=== PATIENT | male | born 1940 | race Two or more races ===

== ENCOUNTER 2021-01-24 19:08 | Inpatient (IN) | payer OTHER ==
[~2021-01-24] VITALS: Ht 165.1 cm; Wt 83.9 kg
[2021-01-24] MEDS ORDERED: NA PHOS,M-B/NA PHOS,DI-BA 1 EA ENEMA RC ONE ×2 (20:00→20:02)
[2021-01-24] MEDS ORDERED: BISACODYL SUPP (10 MG) 10 MG/SUPP.RECT SUPP.RECT RC ONE ×2 (20:00→20:02)
[2021-01-24 20:18] LABS: HEMATOCRIT 44 % (39-51); HEMOGLOBIN 14.5 g/dL (13.5-17.5); LYMPHOCYTES # (AUTO) 0.6 K/uL (0.8-4.8); LYMPHOCYTES % (AUTO) 3.7 % (20.0-44.0); MEAN CORPUSCULAR HGB CONC 33 g/dl (31.0-36.0); MEAN CORPUSCULAR VOLUME 99 fL (80-96); MONOCYTES # (AUTO) 0.2 K/uL (0.1-1.30); MONOCYTES % (AUTO) 1.5 % (2.0-12.0); NEUTROPHILS % (AUTO) 92.8 % (43.0-81.0); PLATELET COUNT (AUTO) 207 K/uL (150-450); RED BLOOD CELL COUNT(AUTO) 4.47 MIL/uL (4.5-6.0)
[2021-01-24 20:36] LABS: ALBUMIN 3.4 g/dL (3.4-5.0); BILIRUBIN,DIRECT 0.2 mg/dL (0.0-0.2); BILIRUBIN,TOTAL 1.3 mg/dL (0.2-1.0); CALCIUM, SERUM 8.1 mg/dL (8.5-10.1); CREATININE 1.3 mg/dL (0.6-1.3); POTASSIUM 3.6 mmol/L (3.5-5.1); TOTAL PROTEIN, SERUM 6.9 g/dL (6.4-8.2)
[2021-01-24] MEDS ORDERED: IOHEXOL-300 100 ML VIAL IV ONE (20:48)
[2021-01-24] MEDS ORDERED: IV NS 0.9% 250 ML IV ONE (20:49)
[2021-01-24] MEDS ORDERED: KETOROLAC TROMETHAMINE INJ 30 MG/ML VIAL IV ONE (21:00)
[2021-01-24] MEDS ORDERED: KETOROLAC TROMETHAMINE 15 MG/ML VIAL ONE (21:13)
--- NOTE | 2021-01-24 21:54 | NUR ---
COVID SWAB COLLECTED AND SENT TO LAB
[2021-01-24] MEDS ORDERED: CIPROFLOXACIN IV RTU 200 ML IV ONE (22:16)
[2021-01-24] MEDS: CIPROFLOXACIN IV RTU 400 MG in PREMIX 1 EA IV SCH (22:21)
--- NOTE | 2021-01-24 22:30 | NUR ---
PATIENT SECOND BM ATTEMPT
[2021-01-24 22:49] LABS: BILIRUBIN,URINE NEGATIVE (NEGATIVE); COLOR,URINE RED (YELLOW); LEUKOCYTE ESTERASE ,URINE MODERATE (NEGATIVE); NITRITE, URINE NEGATIVE (NEGATIVE); PH,URINE 6.5 (5.0-8.0); PROTEIN,URINE 30 mg/dl (NEGATIVE); UGLUCOSE NEGATIVE (NEGATIVE); UROBILINOGEN,URINE 0.2 EU/dL (0.2)
[2021-01-24 22:59] LABS: RBC,URINE TOO NUMEROUS TO COUN /HPF (0-2); WBC,URINE 51-80 /HPF (0-3)
[2021-01-25] MEDS ORDERED: Z GUARD REMEDY 2 OZ OINT TP PRN (01:00)
[2021-01-25] MEDS ORDERED: ONDANSETRON HCL/PF 4 MG/2 ML VIAL IVP PRN (01:00)
[2021-01-25] MEDS ORDERED: ZOLPIDEM TARTRATE 5 MG TABLET PO PRN (01:00)
--- NOTE | 2021-01-25 01:00 | NUR ---
MRSA SWAB COLLECTED AND SENT TO LAB. PATIENT'S BELONGINGS LIST DONE.
--- NOTE | 2021-01-25 01:02 | NUR ---
ms 311-2
--- NOTE | 2021-01-25 01:12 | NUR ---
REPORT GIVEN TO LIZZETH VAUGHN
[2021-01-25] MEDS ORDERED: SENN-175 PO (01:17)
[2021-01-25] MEDS ORDERED: AMLO2.5T4 PO (01:19)
[2021-01-25] MEDS ORDERED: TAMS-12 PO (01:19)
[2021-01-25] MEDS ORDERED: OMEP20CA15 PO (01:19)
--- NOTE | 2021-01-25 01:35 | NUR ---
PATIENT TRANSFERRED VSS, NO ACUTE DISTRESS NOTED.
--- NOTE | 2021-01-25 01:40 | NUR ---
COMPUTER SUPPORT TECHNICIAN NOTE RECEIVED PT FROM [facility] TO [id number] VIA BALJIT ACCOMPANIED BY VALVE SETTER. DX: ACUTE CYSTITIS. PT A/OX4, ABLE TO VERBALIZE NEEDS. SPEAKS BULGARIAN AND SOME HEBREW. HE DENIES PAIN AND DENIES SOB AT THIS TIME. RESPIRATIONS EVEN/UNLABORED. ON ROOM AIR AND JAQUI WELL. NOTED IV SITE L-FA #20G INTACT/PATENT/FLUSHES WELL. NOTED FC IN PLACE, DRAINING RED, CLOUDY URINE. PT IS AMBULATORY. PROVIDED ORIENTATION TO ROOM AND STAFF, AND SAFETY TEACHINGS REINFORCED. PT VERBALIZED UNDERSTANDING. SAFETY MEASURES IN PLACE, BED IN LOWEST LOCKED POSITION, S/R UPX2, CALL LIGHT WITHIN REACH. WILL CONT TO MONITOR.
[2021-01-25] MEDS ORDERED: CEFTRIAXONE 1 G VIAL ONE (01:47)
[2021-01-25] MEDS: ACETAMINOPHEN 325 MG TABLET PO PRN ×2 (01:57→17:27)
[2021-01-25] MEDS: MAG HYDROX/AL HYDROX/SIMETH 30 ML UDC PO PRN (01:57)
[2021-01-25] MEDS: CEFTRIAXONE 1 G in IV D5W 50 ML IV SCH ×2 (01:58→22:12)
--- NOTE | 2021-01-25 02:00 | NUR ---
RN NOTE PT C/O UPSET STOMACH/INDIGESTION AND MILD HEADACHE. PT IS CURRENTLY NPO. REPORTED TO CAITLIN GERARDO, WITH ORDER FOR "NPO EXCEPT MEDS." ORDER NOTED/CARRIED OUT. GIVEN PT MAALOX AND TYLENOL ORDERED.
[2021-01-25 02:10] VITALS: BP 116/62
[2021-01-25] MEDS: IV NS 0.9% 1,000 ML IV PRN ×2 (02:11→16:33)
--- NOTE | 2021-01-25 02:16 | NUR ---
RN NOTE PT VERBALIZED HE FEELS "VERY NERVOUS" AND REQUESTS MED. INVESTMENT BANKING ASSOCIATE CAITLIN MADE AWARE WITH ORDER FOR ATIVAN 0.5MG PO Q6H PRN FOR ANXIETY. NOTED AND CARRIED OUT.
[2021-01-25] MEDS: LORAZEPAM 0.5 MG TABLET PO PRN ×2 (02:35→11:39)
--- NOTE | 2021-01-25 03:00 | NUR ---
RN NOTE PT RESTING COMFORTABLY/ASLEEP AT THIS TIME.
--- NOTE | 2021-01-25 06:32 | NUR ---
RN NOTE PT WENT TO BR EARLIER, STATED HE HAD A VERY SMALL BM, "LIKE TWO SMALL BALLS."
--- NOTE | 2021-01-25 07:20 | NUR ---
RN CLOSING NOTE PT AWAKE IN BED, DENIES ANY PAIN/DISCOMFORT AT THIS TIME. RESPIRATIONS EVEN/UNLABORED. NO SOB. ON ROOM AIR AND JAQUI WELL. SITE L-FA #20G INTACT, RUNNING NS @75ML/HR. FC IN PLACE, DRAINING RED, CLOUDY URINE, OUTPUT 300CC. PT IN NO ACUTE DISTRESS. SAFETY MEASURES MAINTAINED, BED IN LOWEST LOCKED POSITION, S/R UPX2, CALL LIGHT WITHIN REACH. ENDORSED TO NEXT SHIFT NURSE.
--- NOTE | 2021-01-25 07:30 | NUR ---
RN MS OPENING NOTES RECEIVED PATIENT ON BED, AWAKE, A/O X4. IN NO APPARENT DISTRESS NOTED, BREATHING EVEN AND UNLABORED. NO S/SX OF PAIN AT THIS TIME.NO FACIAL GRIMACE, NO FACIAL MOANING AND NO GUARDING BX NOTED. PT. WITH LFA HEPLOCK WITH NS AT 75ML/HR, INFUSING WELL. PT. WITH DURAN CATHETER IN PLACE, INTACT DRAINING WITH HEMATURIA. PT. STILL ON NPO EXCEPT MEDS. FREQUENT VISUAL CHECKS RENDERED TO ENSURE SAFETY AND COMFORT. SAFETY MEASURES PROVIDED. CALL LIGHT WITHIN EASY REACH. WILL CONTINUE TO MONITOR PATIENT
[2021-01-25 08:00] VITALS: BP 111/68
[2021-01-25] MEDS ORDERED: HYDR-3973 PO (08:33)
[2021-01-25] MEDS ORDERED: IBUP-1953 PO (08:33)
[2021-01-25] MEDS: CIPROFLOXACIN IV RTU 400 MG in PREMIX 1 EA IV SCH ×2 (09:35→21:07)
--- NOTE | 2021-01-25 11:39 | NUR ---
RN NOTES PT COMPLAINED THAT HE'S A LITTLE ANXIOUS AND ASKED FOR SOMETHING TO CALM HIM DOWN. ATIVAN 0.5MG TAB GIVEN AT 1139. WILL CONTINUE TO MONITOR PT.
[2021-01-25 12:54] LABS: BASOPHILS % (AUTO) 0.1 % (0.0-2.0); EOSINOPHILS % (AUTO) 0.1 % (0.0-6.0); HEMATOCRIT 42 % (39-51); HEMOGLOBIN 13.9 g/dL (13.5-17.5); LYMPHOCYTES # (AUTO) 0.5 K/uL (0.8-4.8); LYMPHOCYTES % (AUTO) 2.3 % (20.0-44.0); MEAN CORPUSCULAR HGB CONC 33 g/dl (31.0-36.0); MEAN CORPUSCULAR VOLUME 99 fL (80-96); MONOCYTES # (AUTO) 0.7 K/uL (0.1-1.30); NEUTROPHILS # (AUTO) 20.8 K/uL (1.8-8.9); NEUTROPHILS % (AUTO) 94.5 % (43.0-81.0); PLATELET COUNT (AUTO) 196 K/uL (150-450); RED BLOOD CELL COUNT(AUTO) 4.23 MIL/uL (4.5-6.0)
--- NOTE | 2021-01-25 14:10 | NUR ---
RN NOTES INFORMED DR VELARDE TO DO MED RECON AND STATED THAT HE WILL DO IT.
[2021-01-25 16:00] VITALS: BP 118/63
--- NOTE | 2021-01-25 18:38 | NUR ---
MS RN CLOSING NOTES PATIENT IN BED AWAKE AND WATCHING TV AT THIS TIME. A/O X4. PALAUAN SPEAKING. ON ROOM AIR, BREATHING EVEN AND UNLABORED, NO SOB NOTED DURING THE DAY. IV ACCESS ON LFA G #20 INTACT WITH IVF OF NS AT 75ML/HR INFUSING WELL, NO S/S X OF INFILTRATION AT SITE NOTED. DURAN CATHETER IN PLACE, INTACT PRESENTLY DRAINING CLEAR YELLOW URINE TO BEDSIDE URINARY BAG, DURAN CARE DONE. ALL NEEDS AND CARE ATTENDED WELL. SAFETY MEASURE IN PLACE: BED ON LOWEST LOCKED POSITION WITH SIDE-RAILS UP X2. CALL LIGHT WITHIN REACH. WILL ENDORSE ALEJANDRO TO NIGHT
--- NOTE | 2021-01-25 19:41 | NUR ---
MS RN OPENING NOTE PT A/OX4 ABLE TO MAKE NEEDS KNOWN; IN BED. TOLERATING R/A WELL WITH NO SOB. L WRIST #20G NS @ 75 ML/HR; PATENT AND INTACT. DENIES PAIN OR DISCOMFORT AT THIS TIME. F/C DRAINING DARK JOVAN COLORED URINE; PATENT AND INTACT. ALL NEEDS MET. AT BEDSIDE. SAFETY MEASURES IN PLACE: BED IN LOWEST LOCKED POSITION; SIDE RAILS UPX2, CALL LIGHT WITHIN EASY REACH, BED ALARMS ON. PATIENT IN STABLE CONDITION, WILL CONTINUE PLAN OF CARE.
[2021-01-25 20:00] VITALS: BP 106/56
[2021-01-25] MEDS: MAGNESIUM HYDROXIDE 30 ML UDC PO PRN (21:06)
--- NOTE | 2021-01-25 21:06 | NUR ---
MS RN NOTE - CONSTIPATION PT C/O FEELING CONSTIPATED. ONLY 1 SMALL BM TODAY. ADMINISTERED MOM ORDERED. WILL REASSESS FOR BM THROUGHOUT THE SHIFT.
[2021-01-26] MEDS: IV NS 0.9% 1,000 ML IV PRN (04:53)
[2021-01-26] MEDS ORDERED: hydrALAZINE HCL IV 20 MG VIAL IV ONE (05:00)
--- NOTE | 2021-01-26 05:57 | NUR ---
MS RN OPENING NOTE PT A/OX4, SLEEPING IN BED; ABLE TO MAKE NEEDS KNOWN; IN BED. TOLERATING R/A WELL WITH NO SOB. L WRIST #20G NS @ 75 ML/HR; PATENT AND INTACT. DENIES PAIN OR DISCOMFORT AT THIS TIME. F/C DRAINING DARK JOVAN COLORED URINE; PATENT AND INTACT. ALL NEEDS MET. SAFETY MEASURES IN PLACE: BED IN LOWEST LOCKED POSITION; SIDE RAILS UPX2, CALL LIGHT WITHIN EASY REACH, BED ALARMS ON. PATIENT IN STABLE CONDITION, WILL ENDORSE PLAN OF CARE TO ONCOMING MORNING RN.
[2021-01-26 06:23] LABS: BASOPHILS % (AUTO) 0.2 % (0.0-2.0); EOSINOPHILS % (AUTO) 0.3 % (0.0-6.0); HEMATOCRIT 38 % (39-51); HEMOGLOBIN 12.7 g/dL (13.5-17.5); LYMPHOCYTES # (AUTO) 0.8 K/uL (0.8-4.8); LYMPHOCYTES % (AUTO) 3.4 % (20.0-44.0); MEAN CORPUSCULAR HGB CONC 34 g/dl (31.0-36.0); MEAN CORPUSCULAR VOLUME 97 fL (80-96); MONOCYTES # (AUTO) 0.7 K/uL (0.1-1.30); MONOCYTES % (AUTO) 3.4 % (2.0-12.0); NEUTROPHILS # (AUTO) 20.5 K/uL (1.8-8.9); NEUTROPHILS % (AUTO) 92.7 % (43.0-81.0); PLATELET COUNT (AUTO) 174 K/uL (150-450); WHITE BLOOD COUNT (AUTO) 22.1 K/uL (4.3-11.0)
[2021-01-26 06:58] LABS: CALCIUM, SERUM 7.5 mg/dL (8.5-10.1); CARBON DIOXIDE 25 mmol/L (21-32); CHLORIDE 99 mmol/L (98-107); CREATININE 1.6 mg/dL (0.6-1.3); GLUCOSE 96 mg/dL (74-106); MAGNESIUM 1.8 mg/dL (1.8-2.4); PHOSPHORUS 2.1 mg/dL (2.5-4.9); POTASSIUM 3.7 mmol/L (3.5-5.1); SODIUM SERUM 133 mmol/L (136-145); UREA NITROGEN, BLOOD 20 mg/dL (7-18)
--- NOTE | 2021-01-26 07:17 | NUR ---
MS RN OPENING NOTES RECEIVED PATIENT ON BED ASLEEP BUT EASILY AROUSABLE. PATIENT IS A/O X4. PATIENT ON ROOM AIR WITH NO SIGNS OF ACUTE DISTRESS NOTED. PATIENT DOES NOT COMPLAIN OF PAIN OR DISCOMFORT AT THIS TIME. PATIENT WITH IV ACCESS ON LEFT WRIST G#20 WITH IVF RUNNING AT 75ML/HR, INFUSING WELL. WITH DURAN CATHETER TO URINE BAG WITH LIGHT YELLOW URINE DRAINING WELL TO URINE BAG. SAFETY MEASURES IN PLACE WITH BED ON LOWEST AND LOCKED POSITION, SIDE RAILS UP X2, CALL LIGHT AND TABLE WITHIN REACH. WILL CONTINUE TO MONITOR PATIENT.
[2021-01-26 08:00] VITALS: BP 104/56
[2021-01-26] MEDS: ACETAMINOPHEN 325 MG TABLET PO PRN (08:30)
[2021-01-26] MEDS ORDERED: K PHOS NEUTRAL 250 MG TABLET PO ONE (10:00)
[2021-01-26] MEDS: CIPROFLOXACIN IV RTU 400 MG in PREMIX 1 EA IV SCH ×2 (10:21→22:08)
--- NOTE | 2021-01-26 13:00 | NUR ---
MS RN NOTE PATIENT IN STABLE CONDITION. ENCOURAGED TO AMBULATE. VERBALIZED UNDERSTANDIGN AND APPRECIATION. WILL CONTINUE TO MONITOR PATIENT.
[2021-01-26 16:00] VITALS: BP 105/56
[2021-01-26] MEDS: MAG HYDROX/AL HYDROX/SIMETH 30 ML UDC PO PRN (18:34)
--- NOTE | 2021-01-26 19:00 | NUR ---
MS RN CLOSING NOTES PATIENT ON BED ASLEEP BUT EASILY AROUSABLE. PATIENT IS A/O X4. PATIENT ON ROOM AIR WITH NO SIGNS OF ACUTE DISTRESS NOTED. PATIENT DOES NOT COMPLAIN OF PAIN OR DISCOMFORT AT THIS TIME. PATIENT WITH IV ACCESS ON LEFT WRIST G#20 WITH IVF RUNNING AT 75ML/HR, INFUSING WELL. WITH DURAN CATHETER TO URINE BAG WITH LIGHT YELLOW URINE DRAINING WELL TO URINE BAG. PATIENT ENCOURAGED TO AMBULATE. SAFETY MEASURES IN PLACE WITH BED ON LOWEST AND LOCKED POSITION, SIDE RAILS UP X2, CALL LIGHT AND TABLE WITHIN REACH. WILL ENDORSE PATIENT FOR CONTINUITY OF CARE.
[2021-01-26 20:09] VITALS: BP 112/65
[2021-01-26] MEDS: CEFTRIAXONE 1 G in IV D5W 50 ML IV SCH (21:18)
[2021-01-27] MEDS: MAG HYDROX/AL HYDROX/SIMETH 30 ML UDC PO PRN (02:16)
[2021-01-27] MEDS: IV NS 0.9% 1,000 ML IV PRN (05:18)
--- NOTE | 2021-01-27 07:25 | NUR ---
MS RN CLOSING NOTES PATIENT WAS LAST SEEN AWAKE IN HIS ROOM. PATIENT IS A/O X4. PATIENT'S STABLE ON ROOM AIR. IV ACCESS NOTED ON LEFT WRIST GAUGE #20, WHICH IS INTACT, PATENT, AND FLUSHING WELL. PATIENT'S IN NO ACUTE DISTRESS AT THIS TIME. SAFETY MEASURES IN PLACE: BED LOCKED, SIDE RAILS UP X2, AND CALL LIGHT WITHIN REACH. ENDORSED CARE TO THE DAY SHIFT NURSE.
--- NOTE | 2021-01-27 07:45 | NUR ---
MS RN OPENING NOTES RECEIVED PATIENT ON BED LYING IN BED, RESTING. EASY TO AROUSE. A/OX4. STABLE ON ROOM AIR - NO SOB NOTED. NO COMPLAINTS OF PAIN OR DISCOMFORT AT THIS TIME. IV ACCESS TO LEFT WRIST #20 - RUNNING NS @ 75ML/HR, INFUSING WELL. DURAN CATHETER NOTED - DRAINING CLEAR YELLOW URINE TO GRAVITY. SAFETY MEASURES IN PLACE. CALL LIGHT WITHIN REACH. WILL CONTINUE TO MONITOR.
[2021-01-27 08:00] VITALS: BP 106/65
[2021-01-27] MEDS: CIPROFLOXACIN IV RTU 400 MG in PREMIX 1 EA IV SCH ×2 (09:02→22:18)
[2021-01-27] MEDS ORDERED: K PHOS NEUTRAL 250 MG TABLET PO ONE (12:00)
[2021-01-27 16:00] VITALS: BP 122/72
--- NOTE | 2021-01-27 18:50 | NUR ---
MS RN CLOSING NOTES PATIENT CURRENTLY LYING IN BED, RESTING. DAUGHTER AT BEDSIDE. A/O X4. STABLE ON ROOM AIR. NO SOB NOTED. NO DISTRESS/DISCOMFORT AT THIS TIME. IV ACCESS TO LEFT WRIST #20 - SALINE LOCKED. SAFETY MEASURES IN PLACE. CALL LIGHT WITHIN REACH. WILL ENDORSE TO HOME ENERGY CONSULTANT SUPERVISOR NURSE FOR ALEJANDRO.
--- NOTE | 2021-01-27 19:15 | NUR ---
MS RN NOTES RECEIVED LAYING COMFORTABLY ON BED,BREATHING REGULAR,NOT IN ANY FORM OF DISTRESS,IV SITE INFILTRATED AND PAINFUL TO THE TOUCH,WILL PUT NEW SALINE LOCK.PAIN TOLERABLE AT THE MOMENT.DURAN CATH IN PLACE DRAINING CLEAR YELLOW OUTPUT.CALL LIGHT IN REACH,NEEDS ANTICIPATED.
[2021-01-27 20:00] VITALS: BP 110/65
--- NOTE | 2021-01-27 21:06 | NUR ---
MS RN NOTES NEW SALINE LOCK PLACE ON RIGHT FOREARM #22,FLUSHED WITH SALINE,PRESENT IVF INFUSING THIS TIME.
[2021-01-27] MEDS: CEFTRIAXONE 1 G in IV D5W 50 ML IV SCH (21:45)
[2021-01-27] MEDS: LORAZEPAM 0.5 MG TABLET PO PRN (21:49)
--- NOTE | 2021-01-27 21:49 | NUR ---
MS RN NOTES FEELING ANXIOUS,ATIVAN 0.5MG PO GIVEN ORDERED AND PER PATIENT REQUEST.
--- NOTE | 2021-01-28 06:26 | NUR ---
MS RN NOTES SLEPT WELL AT NIGHT,ANXIETY RESOLVED WITH ATIVAN 0.5MG PO ORDERED.ABLE TO STAND UP BY THE BEDSIDE,IVF INFUSING WELL ON RIGHT FORE ARM SALINE LOCK.NO FALL ,NO INJURY.DURAN CATH DRAINS WELL YELLOWISH URINE OUTPUT.WILL ENDORSE TO DAY NURSE FOR ALEJANDRO.
[2021-01-28 06:33] LABS: BASOPHILS % (AUTO) 0.4 % (0.0-2.0); EOSINOPHILS % (AUTO) 5.3 % (0.0-6.0); HEMATOCRIT 38 % (39-51); HEMOGLOBIN 12.9 g/dL (13.5-17.5); LYMPHOCYTES # (AUTO) 1.2 K/uL (0.8-4.8); LYMPHOCYTES % (AUTO) 13.9 % (20.0-44.0); MEAN CORPUSCULAR HGB CONC 34 g/dl (31.0-36.0); MEAN CORPUSCULAR VOLUME 98 fL (80-96); MONOCYTES # (AUTO) 0.9 K/uL (0.1-1.30); MONOCYTES % (AUTO) 9.6 % (2.0-12.0); NEUTROPHILS # (AUTO) 6.3 K/uL (1.8-8.9); NEUTROPHILS % (AUTO) 70.8 % (43.0-81.0); PLATELET COUNT (AUTO) 186 K/uL (150-450); RED BLOOD CELL COUNT(AUTO) 3.92 MIL/uL (4.5-6.0); WHITE BLOOD COUNT (AUTO) 8.9 K/uL (4.3-11.0)
--- NOTE | 2021-01-28 07:20 | NUR ---
RN NOTE RECEIVED PATIENT IN BED. A/O X4. ON ROOM AIR, TOLERATING WELL. NO SOB NOTED. IN NO APPARENT DISTRESS. DENIES ANY PAIN OR DISCOMFORT AT THIS TIME. IV ACCESS ON R FA # 22 G, NS RUNNING @ 75 ML/HR, INTACT AND PATENT. DURAN CATHETER IN PLACE DRAINING YELLOW URINE. SAFETY MEASURES MAINTAINED. BED IN LOWEST POSITION, BRAKES LOCKED. SIDE RAILS UP X2. CALL LIGHT WITHIN REACH. WILL CONTINUE PLAN OF CARE.
[2021-01-28 07:49] LABS: CALCIUM, SERUM 7.9 mg/dL (8.5-10.1); CREATININE 1.2 mg/dL (0.6-1.3); MAGNESIUM 2.3 mg/dL (1.8-2.4); PHOSPHORUS 3.1 mg/dL (2.5-4.9); POTASSIUM 3.9 mmol/L (3.5-5.1)
[2021-01-28 08:00] VITALS: BP 114/70
[2021-01-28] MEDS: CIPROFLOXACIN IV RTU 400 MG in PREMIX 1 EA IV SCH (09:42)
[2021-01-28] MEDS: IV NS 0.9% 1,000 ML IV PRN (09:42)
[2021-01-28] MEDS: MAG HYDROX/AL HYDROX/SIMETH 30 ML UDC PO PRN (09:42)
[2021-01-28] MEDS ORDERED: CEPH250S PO (11:57)
[2021-01-28] MEDS: MAGNESIUM HYDROXIDE 30 ML UDC PO PRN (14:31)
--- NOTE | 2021-01-28 14:50 | NUR ---
DISCHARGE NOTE PATIENT DISCHARGED TO HOME. A/O X 4, ABLE TO MAKE NEEDS KNOWN. PATIENT IS BREATHING EVENLY AND NONLABORED, NO S/S OF DISTRESS NOTED. DENIES PAIN AT THIS TIME. DURAN CATHETER REMOVED. PATIENT WAS GIVEN DISCHARGE INSTRUCTIONS BOTH VERBALLY AND IN WRITTEN FORM, SON PRESENT; BOTH VERBALIZED UNDERSTANDING. PATIENT'S BELONGINGS ACCOUNTED FOR, BELONGING SHEET SIGNED. IV ACCESS REMOVED CATHETER TIP INTACT, PRESSURE DRESSING APPLIED. NO SIGNS OF BLEEDING NOTED. PATIENT LEFT AT 1450, IN STABLE CONDITION WITH SON VIA PRIVATE CAR.
== END 2021-01-28 15:15 | disposition home or self-care (01) | DRG 871 ==
LOC: ER 19:10 → MED 01-25 01:05
PROVIDERS: ADMIT Internal Medicine; ATTEND Nurse Practitioner Acute Care
DX: A41.9 Sepsis, unspecified organism (principal); N17.0 Acute kidney failure with tubular necrosis; N39.0 Urinary tract infection, site not specified; E87.1 Hypo-osmolality and hyponatremia; K59.00 Constipation, unspecified; N40.0 Benign prostatic hyperplasia without lower urinary tract symptoms; Z20.822 Contact with and (suspected) exposure to COVID-19; Z98.890 Other specified postprocedural states; Z88.8 Allergy status to other drugs, medicaments and biological substances; E83.39 Other disorders of phosphorus metabolism; I10 Essential (primary) hypertension; E80.6 Other disorders of bilirubin metabolism; K80.20 Calculus of gallbladder without cholecystitis without obstruction; K76.0 Fatty (change of) liver, not elsewhere classified; F41.9 Anxiety disorder, unspecified
CPT/HCPCS: 36415; 71045-TC; 76705-TC; 80048-TC; 80076-TC; 81001; 83690-TC; 83735-TC; 84100-TC; 85025-TC; 87081-TC; 87086-TC; 87186-TC; A4216; C9803; G0378; J0696; J0744; J1885; J2405; J7030; J7050; J7060; J7070; Q9967

== ENCOUNTER 2021-03-04 17:43 | Inpatient (IN) | payer BC, MEDICAID, MEDICARE, OTHER ==
[~2021-03-04] VITALS: Ht 160 cm; Wt 70.8 kg
[~2021-03-04 17:43] MED LIST: AMLO2.5T4 PO; CEPH250S PO; HYDR-3973 PO; IBUP-1953 PO; OMEP20CA15 PO; SENN-175 PO; TAMS-12 PO
--- NOTE | 2021-03-04 17:45 | NUR ---
patient came to the er complaining of high blood pressure associated with vomiting and stomach ache rating from 10/17. VS 168/81 SC 67 T 97.5 SA02 99% no sob noted. in no apparent distress. breathing is even and unlabored. attached to court recording monitor. awaiting for MD for evaluation.
[2021-03-04] MEDS ORDERED: ONDANSETRON HCL/PF 4 MG/2 ML VIAL IVP ONE (18:30)
[2021-03-04] MEDS ORDERED: ONDANSETRON HCL/PF 4 MG/2 ML VIAL ONE (18:35)
[2021-03-04] MEDS ORDERED: MORPHINE SULFATE INJ 4 MG/ML DISP.SYRIN ONE (18:36)
--- NOTE | 2021-03-04 18:40 | NUR ---
SALINE LOCK ESTABLISHED, BLOOD DRAWN AND SENT TO LAB
--- NOTE | 2021-03-04 18:44 | NUR ---
UNABLE TO PROVIDE URINE AT THIS TIME
--- NOTE | 2021-03-04 18:53 | NUR ---
TAKEN TO CT
[2021-03-04 18:54] LABS: BASOPHILS % (AUTO) 0.3 % (0.0-2.0); EOSINOPHILS % (AUTO) 2.3 % (0.0-6.0); HEMATOCRIT 47 % (39-51); HEMOGLOBIN 15.6 g/dL (13.5-17.5); LYMPHOCYTES # (AUTO) 1.8 K/uL (0.8-4.8); LYMPHOCYTES % (AUTO) 17.3 % (20.0-44.0); MEAN CORPUSCULAR HGB CONC 33 g/dl (31.0-36.0); MEAN CORPUSCULAR VOLUME 98 fL (80-96); MONOCYTES # (AUTO) 0.6 K/uL (0.1-1.30); MONOCYTES % (AUTO) 5.8 % (2.0-12.0); NEUTROPHILS # (AUTO) 7.9 K/uL (1.8-8.9); NEUTROPHILS % (AUTO) 74.3 % (43.0-81.0); PLATELET COUNT (AUTO) 254 K/uL (150-450); RED BLOOD CELL COUNT(AUTO) 4.76 MIL/uL (4.5-6.0); WHITE BLOOD COUNT (AUTO) 10.6 K/uL (4.3-11.0)
[2021-03-04] MEDS ORDERED: MORPHINE SULFATE INJ 2 MG/ML DISP.SYRIN IV ONE (19:00)
--- NOTE | 2021-03-04 19:05 | NUR ---
REC'D REPORT FROM LATANYA DIAZ FOR ALEJANDRO
--- NOTE | 2021-03-04 19:14 | NUR ---
URINE SPECIMEN WAS COLLECTED. SENT TO THE LAB
[2021-03-04 19:44] LABS: BILIRUBIN,URINE NEGATIVE (NEGATIVE); COLOR,URINE YELLOW (YELLOW); LEUKOCYTE ESTERASE ,URINE NEGATIVE (NEGATIVE); NITRITE, URINE NEGATIVE (NEGATIVE); PH,URINE 7.5 (5.0-8.0); PROTEIN,URINE TRACE mg/dl (NEGATIVE); UGLUCOSE NEGATIVE (NEGATIVE); UROBILINOGEN,URINE 0.2 EU/dL (0.2)
[2021-03-04 20:04] LABS: CALCIUM, SERUM 9.1 mg/dL (8.5-10.1); CARBON DIOXIDE 29 mmol/L (21-32); CHLORIDE 104 mmol/L (98-107); CREATININE 1.4 mg/dL (0.6-1.3); GLUCOSE 103 mg/dL (74-106); POTASSIUM 4.1 mmol/L (3.5-5.1); SODIUM SERUM 143 mmol/L (136-145); UREA NITROGEN, BLOOD 31 mg/dL (7-18)
[2021-03-04 20:16] LABS: BACTERIA,URINE None seen /HPF (None Seen); MUCUS,URINE Few /LPF (None Seen); RBC,URINE 0-2 /HPF (0-2); SQUAMOUS EPITHELIAL CELL,UR 0-2 /HPF (None Seen); WBC,URINE 0-2 /HPF (0-3)
[2021-03-04 20:18] LABS: ALANINE AMINOTRANSFERASE 41 U/L (12-78); ALBUMIN 4.2 g/dL (3.4-5.0); ALKALINE PHOSPHATASE 107 U/L (46-116); ASPARTATE AMINOTRANSFERASE 28 U/L (15-37); BILIRUBIN,DIRECT 0.2 mg/dL (0.0-0.2); BILIRUBIN,TOTAL 1.1 mg/dL (0.2-1.0); TOTAL PROTEIN, SERUM 8.1 g/dL (6.4-8.2)
--- NOTE | 2021-03-04 20:51 | NUR ---
DR CHILDERS PAGED PER DR MONTES DE OCA.
--- NOTE | 2021-03-04 21:30 | NUR ---
DR GARDINER PAGED PER DR MONTES DE OCA
[2021-03-04] MEDS ORDERED: LORAZEPAM 1 MG TABLET ONE (23:09)
[2021-03-04] MEDS ORDERED: LORAZEPAM 1 MG TABLET PO ONE (23:30)
--- NOTE | 2021-03-05 00:46 | NUR ---
CM, LILIA, GAVE VERBAL AUTHORIZATION FOR PT TO STAY
--- NOTE | 2021-03-05 01:57 | NUR ---
Patient is resting comfortably in bed with eyes closed. Easily aroused. VSS
[2021-03-05] MEDS ORDERED: ONDANSETRON HCL/PF 4 MG/2 ML VIAL IVP PRN (02:00)
[2021-03-05] MEDS ORDERED: ZOLPIDEM TARTRATE 5 MG TABLET PO PRN (02:00)
[2021-03-05] MEDS ORDERED: IV NS 0.9% 1,000 ML IV PRN (02:00)
[2021-03-05] MEDS ORDERED: MORPHINE SULFATE INJ 2 MG/ML DISP.SYRIN IV PRN (02:00)
[2021-03-05] MEDS ORDERED: Z GUARD REMEDY 2 OZ OINT TP PRN (02:00)
--- NOTE | 2021-03-05 02:33 | NUR ---
MS 327-1
--- NOTE | 2021-03-05 03:15 | NUR ---
TRANSFERRING PT TO 327-1
--- NOTE | 2021-03-05 03:28 | NUR ---
MS RN NOTES PT ARRIVED TO UNIT VIA GURNEY PT ABLE TO WALK TO BED OBSERVED STEADY GAIT. PT A/O X4 FRENCH SPEAKING BUT UNDERSTANDS BASIC GEORGIAN. PT IN NO PAIN OR DISCOMFORT AT THIS TIME NO N/V AT THIS TIME. PT HAS IV ACCESS ON THE RAC 18 G RUNNING NS @ 75 ML/HR TOLERATING WELL. PT NPO AT THIS TIME. PT ADMITTED FOR SBO PT ON STRICT I AND OS ASPIRATION PRECAUTION HEAD KEPT ELEVATED AT ALL TIMES BEDSIDE TABLE WITHIN REACH. CALL LIGHT WITHIN REACH. PT ORIENTATED TO ROOM AND UNIT. BELONGINGS CHECKED AND VERIFIED WITH PT. WILL CONTINUE TO MONITOR.
[2021-03-05 03:30] VITALS: BP 136/76
[2021-03-05 03:35] VITALS: BP 136/76
--- NOTE | 2021-03-05 06:39 | NUR ---
MS RN NOTES PT A/O X4 YI SPEAKING BUT UNDERSTANDS BASIC NORWEGIAN. PT IN NO PAIN OR DISCOMFORT AT THIS TIME NO N/V AT THIS TIME. PT HAS IV ACCESS ON THE RAC 18 G RUNNING NS @ 75 ML/HR TOLERATING WELL. PT NPO AT THIS TIME. PT ADMITTED FOR SBO PT ON STRICT I AND OS ASPIRATION PRECAUTION HEAD KEPT ELEVATED AT ALL TIMES BEDSIDE TABLE WITHIN REACH. CALL LIGHT WITHIN REACH. BILATERAL SIDE RAILS UP FOR SAFETY. WILL ENODRSE CARE TO DAY SHIFT NURSE.
--- NOTE | 2021-03-05 07:30 | NUR ---
MS RN OPENING NOTES RECEIVED PT AWAKE ON BED AND A/O X4, TAJIK SPEAKING BUT UNDERSTANDS BASIC CAMBODIAN. WITH NO COMPLAINTS OF PAIN OR DISCOMFORT AT THIS TIME. WITH IV ACCESS ON THE RAC 18G RUNNING NS @ 75 ML/HR INFUSING WELL. PT ON NPO AT THIS TIME. SAFETY MEASURES IN PLACE. BEDSIDE TABLE WITHIN REACH. CALL LIGHT WITHIN REACH. SIDE RAILS UP FOR SAFETY. WILL CONTINUE TO MONITOR.
[2021-03-05 08:59] LABS: ALBUMIN 3.2 g/dL (3.4-5.0); BILIRUBIN,TOTAL 1.2 mg/dL (0.2-1.0); CALCIUM, SERUM 8.1 mg/dL (8.5-10.1); CREATININE 1.2 mg/dL (0.6-1.3); POTASSIUM 4.2 mmol/L (3.5-5.1); TOTAL PROTEIN, SERUM 6.5 g/dL (6.4-8.2)
[2021-03-05] MEDS: HEPARIN SODIUM, PORCINE 5000 UNITS/1 ML VIAL SQ SCH ×2 (09:06→20:28)
[2021-03-05] MEDS: PANTOPRAZOLE 40 MG VIAL IV SCH (09:10)
[2021-03-05] MEDS ORDERED: POLYETHYLENE GLYCOL 3350 17 GM POWD.PACK PO PRN (11:30)
[2021-03-05] MEDS: DOCUSATE SODIUM 100 MG CAPSULE PO SCH ×2 (12:46→17:20)
[2021-03-05] MEDS ORDERED: DIATR MEGLU/DIATRIZOATE SODIUM 120 ML BOTTLE (GASTROGRAPHIN) ONE (13:11)
[2021-03-05] MEDS: IV NS 0.9% 1,000 ML IV PRN (18:38)
--- NOTE | 2021-03-05 18:56 | NUR ---
MS RN CLOSING NOTES PT RESTING ON BED AND A/O X4, ICELANDIC SPEAKING BUT UNDERSTANDS BASIC BURUNDIAN. WITH NO COMPLAINTS OF PAIN OR DISCOMFORT AT THIS TIME. WITH IV ACCESS ON THE RAC 18G RUNNING NS @ 75 ML/HR INFUSING WELL. PT ON NPO AT THIS TIME. SAFETY MEASURES IN PLACE. BEDSIDE TABLE WITHIN REACH. CALL LIGHT WITHIN REACH. SIDE RAILS UP FOR SAFETY. WILL ENDORSE TO NEXT SHIFT FOR ALEJANDRO.
--- NOTE | 2021-03-05 19:27 | NUR ---
MS RN OPENING NOTES RECEIVED PT. AWAKE ON BED AND A/O X4, VIETNAMESE SPEAKING BUT UNDERSTANDS BASIC NIGERIEN. IN NO APPARENT RESPIRATORY DISTRESS NOTED, BREATHING EVEN AND UNLABORED. DENIES OF PAIN OR DISCOMFORT AT THIS TIME. WITH IV ACCESS ON THE RAC 18G RUNNING NS @ 75 ML/HR INFUSING WELL. PT ON NPO AT THIS TIME. SAFETY MEASURES IN PLACE. BEDSIDE TABLE WITHIN REACH. CALL LIGHT WITHIN REACH. SIDE RAILS UP FOR SAFETY. WILL CONTINUE TO MONITOR PATIENT ACCORDINGLY.
[2021-03-05 20:00] VITALS: BP 127/67
[2021-03-06] MEDS: IV NS 0.9% 1,000 ML IV PRN (05:23)
--- NOTE | 2021-03-06 06:30 | NUR ---
MS RN CLOSING NOTES PT. AWAKE ON BED AND A/O X4, GUINEAN SPEAKING BUT UNDERSTANDS BASIC [place] ISLANDER. IN NO APPARENT RESPIRATORY DISTRESS NOTED, BREATHING EVEN AND UNLABORED. DENIES OF PAIN OR DISCOMFORT AT THIS TIME. WITH IV ACCESS ON THE RAC 18G RUNNING NS @ 75 ML/HR INFUSING WELL. PT STILL ON NPO AT THIS TIME. ALL NEEDS ATTENDED.SAFETY MEASURES IN PLACE. BEDSIDE TABLE WITHIN REACH. CALL LIGHT WITHIN REACH. SIDE RAILS UP FOR SAFETY. WILL ENDORSED PT. TO DAY TIME SHIFT NURSE FOR ALEJANDRO.
[2021-03-06 07:06] LABS: BASOPHILS % (AUTO) 0.4 % (0.0-2.0); EOSINOPHILS % (AUTO) 7.3 % (0.0-6.0); HEMATOCRIT 40 % (39-51); HEMOGLOBIN 13.4 g/dL (13.5-17.5); LYMPHOCYTES # (AUTO) 1.9 K/uL (0.8-4.8); LYMPHOCYTES % (AUTO) 32.8 % (20.0-44.0); MEAN CORPUSCULAR HGB CONC 33 g/dl (31.0-36.0); MEAN CORPUSCULAR VOLUME 99 fL (80-96); MONOCYTES # (AUTO) 0.5 K/uL (0.1-1.30); MONOCYTES % (AUTO) 8.5 % (2.0-12.0); NEUTROPHILS # (AUTO) 2.9 K/uL (1.8-8.9); PLATELET COUNT (AUTO) 198 K/uL (150-450); RED BLOOD CELL COUNT(AUTO) 4.06 MIL/uL (4.5-6.0); WHITE BLOOD COUNT (AUTO) 5.7 K/uL (4.3-11.0)
[2021-03-06 07:25] LABS: BILIRUBIN,TOTAL 1.5 mg/dL (0.2-1.0); CALCIUM, SERUM 8.1 mg/dL (8.5-10.1); CREATININE 1.3 mg/dL (0.6-1.3); MAGNESIUM 2.2 mg/dL (1.8-2.4); POTASSIUM 4.2 mmol/L (3.5-5.1); TOTAL PROTEIN, SERUM 6.2 g/dL (6.4-8.2)
--- NOTE | 2021-03-06 07:30 | NUR ---
MS RN OPENING NOTES RECEIVED PATIENT AWAKE ON BED AND A/O X4, MALAWIAN SPEAKING BUT UNDERSTANDS BASIC DANISH. IN NO APPARENT RESPIRATORY DISTRESS NOTED, BREATHING EVENLY AND UNLABORED. WITH NO COMPLAINTS OF PAIN OR DISCOMFORT AT THIS TIME. WITH IV ACCESS ON THE RAC 18G RUNNING NS @ 75 ML/HR INFUSING WELL. ON NPO AT THIS TIME. SAFETY MEASURES IN PLACE. BEDSIDE TABLE WITHIN REACH. CALL LIGHT WITHIN REACH. SIDE RAILS UP FOR SAFETY. WILL CONTINUE TO MONITOR.
[2021-03-06 08:00] VITALS: BP 119/62
[2021-03-06] MEDS: DOCUSATE SODIUM 100 MG CAPSULE PO SCH (08:28)
[2021-03-06] MEDS: PANTOPRAZOLE 40 MG VIAL IV SCH (08:28)
[2021-03-06] MEDS: HEPARIN SODIUM, PORCINE 5000 UNITS/1 ML VIAL SQ SCH (08:30)
[2021-03-06] MEDS ORDERED: IV D5/0.45 NACL 1,000 ML IV PRN (09:00)
[2021-03-06 15:56] VITALS: BP 124/62
--- NOTE | 2021-03-06 16:20 | NUR ---
MS CLAIM ADMINISTRATOR NOTES PATIENT WAS SEEN BY DR. SMITH AND ORDERED PATIENT FOR DISCHARGE TO HOME. DISCHARGE INSTRUCTION AND EDUCATION PROVIDED TO PATIENT AND EXPLAINED MEDICATIONS AND PRESCRIPTIONS. PATIENT VERBALIZED UNDERSTANDING. DISCHARGE FORM AND BELONGINGS LIST SIGNED BY PATIENT. ALL BELONGINGS ACCOUNTED FOR. NAME WRIST BAND AND IV LINE REMOVED. NO SKIN ISSUES NOTED. PATIENT WAS ACCOMPANIED TO THE LOBBY VIA WHEELCHAIR. PATIENT WAS PICKED UP BY AND DAUGHTER AND LEFT IN STABLE CONDITION VIA PRIVATE CAR. MD AND CHARGE NURSE ARE AWARE OF THE DISCHARGE.
[2021-03-07] MEDS ORDERED: PANTOPRAZOLE 40 MG/PACK PACK PO SCH (09:00)
== END 2021-03-06 15:30 | disposition home or self-care (01) | DRG 388 ==
LOC: ER 18:04 → MED 03-05 02:54
PROVIDERS: ADMIT Internal Medicine; ATTEND Internal Medicine
DX: K56.600 Partial intestinal obstruction, unspecified as to cause (principal); N17.0 Acute kidney failure with tubular necrosis; E87.0 Hyperosmolality and hypernatremia; J98.11 Atelectasis; Z20.822 Contact with and (suspected) exposure to COVID-19; I10 Essential (primary) hypertension; Z88.8 Allergy status to other drugs, medicaments and biological substances; Z79.899 Other long term (current) drug therapy; E88.89 Other specified metabolic disorders; I70.0 Atherosclerosis of aorta; T73.0XXA Starvation, initial encounter; N40.0 Benign prostatic hyperplasia without lower urinary tract symptoms; K64.9 Unspecified hemorrhoids; E80.6 Other disorders of bilirubin metabolism; Z87.19 Personal history of other diseases of the digestive system; E86.1 Hypovolemia
CPT/HCPCS: 36415; 71045-TC; 74250-TC; 80048-TC; 80053-TC; 80076-TC; 81001; 83735-TC; 84100-TC; 84484-TC; 85025-TC; 87081-TC; 93307-TC; C9113; C9803; G0378; J1644; J2270; J2405; J3490; J7030; Q9963

== ENCOUNTER 2023-12-25 21:34 | Emergency (ER) | payer OTHER ==
[~2023-12-25] VITALS: Ht 154.9 cm; Wt 71.7 kg
[~2023-12-25 21:34] MED LIST changes: -CEPH250S PO; -IBUP-1953 PO
[2023-12-25] MEDS ORDERED: ONDANSETRON HCL/PF 4 MG/2 ML VIAL ONE (22:10)
[2023-12-25] MEDS: ONDANSETRON HCL/PF 4 MG/2 ML VIAL IVP ONE (22:11)
[2023-12-25 22:18] LABS: BASOPHILS % (AUTO) 0.4 % (0.0-2.0); EOSINOPHILS # (AUTO) 0.3 K/uL (0.0-0.7); EOSINOPHILS % (AUTO) 5.8 % (0.0-6.0); HEMATOCRIT 43 % (39-51); HEMOGLOBIN 14.4 g/dL (13.5-17.5); LYMPHOCYTES # (AUTO) 2.2 K/uL (0.8-4.8); LYMPHOCYTES % (AUTO) 38.1 % (20.0-44.0); MEAN CORPUSCULAR HEMOGLOBIN 33 PG (26.0-33.0); MEAN CORPUSCULAR HGB CONC 34 g/dl (31.0-36.0); MEAN CORPUSCULAR VOLUME 98 fL (80-96); MONOCYTES # (AUTO) 0.5 K/uL (0.1-1.30); MONOCYTES % (AUTO) 8.8 % (2.0-12.0); NEUTROPHILS # (AUTO) 2.7 K/uL (1.8-8.9); NEUTROPHILS % (AUTO) 46.9 % (43.0-81.0); PLATELET COUNT (AUTO) 211 K/uL (150-450); RED BLOOD CELL COUNT(AUTO) 4.41 MIL/uL (4.5-6.0); RED CELL DISTRIBUTION WIDTH 13.5 % (11.5-15.0); WHITE BLOOD COUNT (AUTO) 5.7 K/uL (4.3-11.0)
[2023-12-25 22:44] LABS: CARBON DIOXIDE 28 mmol/L (21-32); CHLORIDE 105 mmol/L (98-107); GLUCOSE 101 mg/dL (74-106); POTASSIUM 3.7 mmol/L (3.5-5.1); SODIUM SERUM 140 mmol/L (136-145)
[2023-12-25 22:45] LABS: CALCIUM, SERUM 9.1 mg/dL (8.5-10.1); CREATININE 1.4 mg/dL (0.6-1.3); UREA NITROGEN, BLOOD 26 mg/dL (7-18)
[2023-12-25 22:56] LABS: ALANINE AMINOTRANSFERASE 42 U/L (12-78); ALBUMIN 3.7 g/dL (3.4-5.0); LIPASE 98 U/L (16-77); TOTAL PROTEIN, SERUM 7.3 g/dL (6.4-8.2)
[2023-12-25 22:57] LABS: ALKALINE PHOSPHATASE 90 U/L (46-116); ASPARTATE AMINOTRANSFERASE 28 U/L (15-37); BILIRUBIN,DIRECT 0.2 mg/dL (0.0-0.2); BILIRUBIN,TOTAL 0.8 mg/dL (0.2-1.0)
[2023-12-25 23:22] LABS: ADD URINE CULTURE NO; APPEARANCE,URINE CLEAR (CLEAR); BACTERIA,URINE Rare /HPF (None Seen); BILIRUBIN,URINE NEGATIVE (NEGATIVE); BLOOD, URINE TRACE-INTA Ery/uL (NEGATIVE); COLOR,URINE YELLOW (YELLOW); KETONES,URINE NEGATIVE (NEGATIVE); LEUKOCYTE ESTERASE ,URINE NEGATIVE (NEGATIVE); NITRITE, URINE NEGATIVE (NEGATIVE); PROTEIN,URINE TRACE mg/dl (NEGATIVE); SQUAMOUS EPITHELIAL CELL,UR Rare /HPF (None Seen); UGLUCOSE NEGATIVE (NEGATIVE); UROBILINOGEN,URINE 0.2 EU/dL (0.2); WBC,URINE 0-2 /HPF (0-3)
[2023-12-26] MEDS ORDERED: ONDA4TAB11 PO (00:30)
[2023-12-26 00:50] VITALS: BP 136/80; TEMP 98.1; O2SAT 97
== END 2023-12-26 01:02 | disposition home or self-care (01) ==
LOC: ER 21:36
DX: R11.2 Nausea with vomiting, unspecified (principal); R42 Dizziness and giddiness; R10.13 Epigastric pain; I10 Essential (primary) hypertension; Z86.79 Personal history of other diseases of the circulatory system; Z87.438 Personal history of other diseases of male genital organs; Z87.448 Personal history of other diseases of urinary system; Z88.8 Allergy status to other drugs, medicaments and biological substances; Z60.2 Problems related to living alone
CPT/HCPCS: 99285; 96374; 76705; 71045; 93005; 85025; 80048; 83690; 80076; 81001; 36415; J2405